=== PATIENT | male | born 1985 | race African-American/Black ===

== ENCOUNTER 2019-01-27 23:22 | Emergency (ER) | payer OTHER ==
[~2019-01-27] VITALS: Ht 175.3 cm; Wt 104.5 kg
[2019-01-27 23:30] VITALS: BP 147/88
[2019-01-28] MEDS ORDERED: KETOROLAC 60 MG/2 ML VIAL (J1885) IM ONE
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
== END 2019-01-28 00:59 | disposition home or self-care (01) ==
LOC: M ED 23:22
DX: S93.401A Sprain of unspecified ligament of right ankle, initial encounter (principal); V86.64XA Passenger of military vehicle injured in nontraffic accident, initial encounter; Y92.9 Unspecified place or not applicable; Y93.9 Activity, unspecified; Y99.9 Unspecified external cause status
CPT/HCPCS: 70450; 73610; 96372; 99284; J1885